=== PATIENT | male | born 1955 ===

== ENCOUNTER 2021-12-31 10:53 | Emergency (ER) | payer OTHER, MEDICAID ==
[2021-12-31 11:06] VITALS: BP 141/66; PULSE 88
[2021-12-31] MEDS: Acetaminophen 500 MG Tab PO ONE (11:24)
== END 2021-12-31 12:25 | disposition home or self-care (01) ==
LOC: LB.ED 10:53
DX: S00.03XA Contusion of scalp, initial encounter (principal); Z88.8 Allergy status to other drugs, medicaments and biological substances; Z79.82 Long term (current) use of aspirin; Z91.030 Bee allergy status; W22.09XA Striking against other stationary object, initial encounter; Y99.0 Civilian activity done for income or pay
CPT/HCPCS: 70450; 99283; A9270

== ENCOUNTER 2023-05-01 11:37 | Emergency (ER) | payer MEDICARE, OTHER | END 2023-05-01 11:40 | disposition left against medical advice (07) | LOC: LB.ED 11:37 | DX: Z53.21 Procedure and treatment not carried out due to patient leaving prior to being seen by health care provider (principal) ==

== ENCOUNTER 2023-05-04 15:29 | Emergency (ER) | payer MEDICARE ==
[2023-05-04 15:40] VITALS: BP 133/80; PULSE 88
== END 2023-05-04 16:02 | disposition home or self-care (01) ==
LOC: LB.ED 15:29
DX: T63.441A Toxic effect of venom of bees, accidental (unintentional), initial encounter (principal); Z88.8 Allergy status to other drugs, medicaments and biological substances; Z91.030 Bee allergy status
CPT/HCPCS: 99282